=== PATIENT | male | born 1965 | race Caucasian/White ===

== ENCOUNTER 2019-12-19 08:07 | Emergency (ER) | payer OTHER ==
[~2019-12-19] VITALS: Ht 177.8 cm; Wt 89.8 kg
[2019-12-19 08:15] VITALS: BP 155/89
[2019-12-19] MEDS ORDERED: LIDOCAINE 1% INJ 50 ML MDV IJ ONE (10:00)
--- NOTE | 2019-12-19 10:30 | NUR ---
Patient awake alert non distress made aware plan of care
--- NOTE | 2019-12-19 11:25 | NUR ---
Patient discharged to home in stable condition. Written and verbal after care instructions given. Patient verbalizes understanding of instruction.
== END 2019-12-19 11:25 | disposition home or self-care (01) ==
LOC: ER 08:07
DX: S61.213D Laceration without foreign body of left middle finger without damage to nail, subsequent encounter (principal); X58.XXXD Exposure to other specified factors, subsequent encounter
CPT/HCPCS: 73130-TC